=== PATIENT | female | born 1970 ===

== ENCOUNTER 2018-10-04 09:27 | Emergency (ER) | payer OTHER ==
[~2018-10-04] VITALS: Ht 162.6 cm; Wt 65.8 kg
== END 2018-10-04 12:15 | disposition home or self-care (01) ==
LOC: ER 09:27
DX: S13.4XXA Sprain of ligaments of cervical spine, initial encounter (principal); M62.838 Other muscle spasm; V49.9XXA Car occupant (driver) (passenger) injured in unspecified traffic accident, initial encounter; Y93.89 Activity, other specified; Y92.488 Other paved roadways as the place of occurrence of the external cause; Y99.8 Other external cause status